=== PATIENT | female | born 1985 | race Caucasian/White ===

== ENCOUNTER 2016-11-21 20:29 | Emergency (ER) | payer OTHER ==
[2016-11-21 20:38] VITALS: BP 120/75; TEMP 98.5; BMI 26.6
[2016-11-21 21:02] VITALS: PULSE 107
--- NOTE | 2016-11-21 21:03 | PDOC ---
History of Present Illness - General Chief Complaint: Respiratory Stated Complaint: COLD SYMPTOMS/24 WKS Time Seen by Provider: 11/21/16 20:41 History Source: Patient - History of Present Illness Timing/Duration: reports: yesterday Associated Symptoms: reports: cough, fever/chills, nasal congestion, nasal drainage. denies: earache Past History - Past Medical History Allergies/Adverse Reactions: Allergies Allergy/AdvReac Type Severity Reaction Status Date / Time No Known Allergies Allergy Verified 11/21/16 20:38 Home Medications: Ambulatory Orders NK [No Known Home Medication] 01/25/16 Other medical history: denies - Psycho/Social/Smoking Cessation Hx Suicidal Ideation: No Smoking History: Never smoked Substance Use Type: None Review of Systems - Review of Systems Constitutional: Yes: Fever HEENTM: No: Ear Pain, Throat Pain Respiratory: Yes: Cough. No: Shortness of Breath, Wheezing Cardiac (ROS): No: Chest Pain *Physical Exam - Vital Signs Last Vital Signs Temp Pulse Resp BP Pulse Ox 98.5 F 124 H 18 120/75 97 11/21/16 20:36 11/21/16 20:36 11/21/16 20:36 11/21/16 20:36 11/21/16 20:36 - Physical Exam General Appearance: Yes: Appropriately Dressed. No: Apparent Distress HEENT: positive: Normal ENT Inspection, Normal Voice. negative: Scleral Icterus (R), Scleral Icterus (L) Neck: positive: Supple Respiratory/Chest: positive: Lungs Clear, Normal Breath Sounds. negative: Respiratory Distress Cardiovascular: positive: S1, S2 Integumentary: positive: Dry, Warm Neurologic: positive: Fully Oriented, Alert, Normal Mood/Affect Medical Decision Making - Medical Decision Making 11/21/16 21:00 31 yo F, currently 6 months w/ no issues w/ so far, p/w productuve cough w/ nasal congestion, rhinorrhea and subj fever since yesterday. States she has had intermittent difficulty breathing as her advances but denies acute sob, chest tightness or palpitations. No abd pain, vag bleed or dysuria. Patient well-appearing but tachycardic to 124 in ED, that significantly improved without any intervention. Rest of exam unremarkable. Most likely viral URI, no e/o serious pathology at this time. DC with instructions to maintain adequate hydration and take Tylenol for any pain. Patient discuss further recs with her OB 11/21/16 21:15 *DC/Admit/Observation/Transfer Diagnosis at time of Disposition: URI (upper respiratory infection) Qualifiers: URI type: unspecified viral URI Qualified Code(s): J06.9 - Acute upper respiratory infection, unspecified - Referrals Referrals: Demarcus Martinez [Primary Care Provider] - - Patient Instructions Printed Discharge Instructions: DI for Viral Upper Respiratory Infection -- Adult Additional Instructions: Please follow-up with your [employer]ICATION regarding recommendations
== END 2016-11-21 21:20 | disposition home or self-care (01) ==
LOC: JERFT 20:29
DX: O26.892 Other specified pregnancy related conditions, second trimester (principal); J06.9 Acute upper respiratory infection, unspecified; Z3A.24 24 weeks gestation of pregnancy
CPT/HCPCS: 99281-25

== ENCOUNTER 2017-02-07 19:11 | Inpatient (IN) | payer OTHER ==
[2017-02-07 20:41] VITALS: BMI 27.8
[2017-02-07 21:23] LABS: BASOPHIL 0.2 % (0-2.0); EOSINOPHIL 2.1 % (0-4.5); MCH 28.2 pg (25.7-33.7); MCHC 32.8 g/dl (32.0-36.0); MEAN PLT VOLUME 8.6 fl (7.5-11.1); NEUTROPHILS 70.9 % (42.8-82.8); PLATELET COUNT 286 K/MM3 (134-434); RDW 14.5 % (11.6-15.6); WHITE BLOOD COUNT 11.6 K/mm3 (4.0-10.0)
[2017-02-07 21:32] LABS: ANION GAP 14 (8-16); CALCIUM 8.7 mg/dL (8.5-10.1); CO2 19 mmol/L (21-32); CREATININE 0.6 mg/dL (0.55-1.02); GLUCOSE,RANDOM 109 mg/dL (74-106)
[2017-02-07 21:40] LABS: INR 0.95 (0.82-1.09); PROTHROMBIN TIME (PATIENT) 10.4 SEC (9.98-11.88)
[2017-02-07 21:42] LABS: ACTIVATED PTT 28.5 SECONDS (26.9-34.4)
[2017-02-07] MEDS ORDERED: ELECTROLYTE-148 SOLN 500 ML IV ONE (21:51)
[2017-02-07] MEDS ORDERED: CITRIC ACID/SODIUM CITRATE 30 ML UNIT-DOSE CUP PO ONE (21:51)
--- NOTE | 2017-02-07 21:58 | HP ---
Past Medical History - Admission Chief Complaint: Premature Rupture of membrane History of Present Illness: 32 yo @ 35.6 weeks gestation, EDC 03/09/17, presents c/o rupture of membrane. Patient had a sonogram showing evidence of breech presentation. She has personal h/o labor and has been on Progesterone throughout the . History Source: Patient Limitations to Obtaining History: No Limitations - Past Medical History ...: 5 ...Para: 1 ...Term: 0 ...: 1 ...Spon : 0 ...Induced : 3 ...Multiple Gestation: 0 ... Weeks Gestation by Dates: 35.6 ...EDC by Dates: 03/09/17 ...EDC by Sono: 03/09/17 - Past Surgical History Past Surgical History: Yes: None Hx Myomectomy: No Hx Transabdominal Cerclage: No - Smoking History Smoking history: Never smoked Have you smoked in the past 12 months: No - Alcohol/Substance Use Hx Alcohol Use: No History of Substance Use: reports: None - Social History Usual Living Arrangement: Yes: With Spouse History of Recent Travel: No Home Medications - Allergies Allergies/Adverse Reactions: Allergies Allergy/AdvReac Type Severity Reaction Status Date / Time No Known Allergies Allergy Verified 02/07/17 20:16 - Home Medications Home Medications: Ambulatory Orders Iron 1 tab PO DAILY 02/01/17 Vitamins (Sjr) - 1 tab PO DAILY 02/01/17 Family Disease History - Family Disease History Family History: Unremarkable Review of Systems - Review of Systems Constitutional: reports: No Symptoms Eyes: reports: No Symptoms HENT: reports: No Symptoms Neck: reports: No Symptoms Cardiovascular: reports: No Symptoms Respiratory: reports: No Symptoms Gastrointestinal: reports: No Symptoms Genitourinary: reports: Other (Rupture of membrane) Breasts: reports: No Symptoms Reported Musculoskeletal: reports: No Symptoms Integumentary: reports: No Symptoms Neurological: reports: No Symptoms Endocrine: reports: No Symptoms Hematology/Lymphatic: reports: No Symptoms Psychiatric: reports: No Symptoms Pain Intensity: 0 Physical Exam - Maternity Vital Signs: Vital Signs Temperature 99.1 F 02/07/17 20:24 Pulse Rate 100 H 02/07/17 20:24 Respiratory Rate 18 02/07/17 20:24 Blood Pressure 120/71 02/07/17 20:24 O2 Sat by Pulse Oximetry (%) Constitutional: Yes: Well Nourished Eyes: Yes: Conjunctiva Clear HENT: Yes: Atraumatic Neck: Yes: Supple, Trachea Midline Cardiovascular: Yes: Regular Rate and Rhythm Lungs: Clear to auscultation - Abdominal Exam/OB Number of Fetuses: Single Presentation: Vertex Contractions: Yes Regularity: Irregular Intensity: Unaware - Vaginal Exam/OB Vaginal Bleediing: No Amniotic Membrane Status: Ruptured Amniotic Fluid: Yes: Clear Presentation: Ananth Breech - Physical Exam ...Motor Strength: WNL Psychiatric: Yes: Alert, Oriented - Labs Lab Results: CBC, BMP 02/07/17 20:10 02/07/17 20:10 Problem List - Problems (1) premature rupture of membranes (PPROM) with unknown onset of labor Code(s): O42.919 - PRETRM XANDER ROM, UNSP TIME BETW RUPT AND ONST LABR, UNSP TRI Assessment/Plan Premature rupture of membrane Personal h/o Breech presentation Pre op for Consent signed Prep and shave Anesthesia to see patient
--- NOTE | 2017-02-07 22:04 | OP ---
Operative Note - Note: Operative Date: 02/07/17 Pre-Operative Diagnosis: PPROM / Breech Operation: Primary Low Transverse Findings: Baby girl in Ananth breech presentation Post-Operative Diagnosis: Same as Pre-op Surgeon: Vesna Yin [employer] Remover: Vi King Anesthesia: Spinal Specimens Removed: Placenta Estimated Blood Loss (mls): 500
[2017-02-07] MEDS ORDERED: METHYLERGONOVINE MALEATE 0.2 MG/1 ML AMP IM PRN (23:21)
[2017-02-07] MEDS ORDERED: D5W-LR W/ 20 UNITS OXYTOCIN 1,000 ML IV SCH (23:30)
[2017-02-08] MEDS ORDERED: ONDANSETRON 4 MG/2 ML VIAL IVPB PRN (00:02)
[2017-02-08 08:39] LABS: BASOPHIL 0.2 % (0-2.0); EOSINOPHIL 1.1 % (0-4.5); MCH 28.8 pg (25.7-33.7); MCHC 33.4 g/dl (32.0-36.0); MEAN CELL VOLUME 86.3 fl (80-96); MEAN PLT VOLUME 8.3 fl (7.5-11.1); PLATELET COUNT 222 K/MM3 (134-434); RDW 14.5 % (11.6-15.6); WHITE BLOOD COUNT 13.5 K/mm3 (4.0-10.0)
[2017-02-08] MEDS ORDERED: ACETAMINOPHEN 325 MG TABLET (FP) ONE ×2 (09:10→14:23)
[2017-02-08] MEDS: SIMETHICONE 80 MG TAB.CHEW (FP) PO PRN ×3 (09:15→18:43)
[2017-02-08] MEDS: IBUPROFEN 600 MG TABLET (FP) PO PRN ×3 (09:16→18:44)
[2017-02-08] MEDS: FERROUS SO4 325 MG TABLET (FP) PO SCH ×2 (09:27→22:48)
[2017-02-08] MEDS: PRENATAL VITAMINS W/ FOLIC ACID TABLET (FP) PO SCH (09:27)
--- NOTE | 2017-02-08 12:00 | PN ---
Progress Note (short form) - Note Progress Note: Anesthesia postop note, POD#1 S/P . Pat seen and examined. VSS. Senory and motor intact. No apparent post anesthesia complications. Signed off.
--- NOTE | 2017-02-08 13:33 | PN ---
Post Progress Note - Subjective Subjective: 32 yo status post primary due to Breech presentation, seen and evaluated. Doing well. Post Day: 1 Type of Delivery: Primary C/S Vital Signs: Vital Signs Temperature 98.1 F 02/08/17 09:46 Pulse Rate 87 02/08/17 09:46 Respiratory Rate 20 02/08/17 10:00 Blood Pressure 108/54 02/08/17 09:46 O2 Sat by Pulse Oximetry (%) 100 02/08/17 00:30 Breast Exam: Yes: Soft Uterus: Yes: Fundus Firm Incision: Yes: Dressing dry and intact Abdomen/GI: Yes: Abdomen soft, Tolerating PO Lochia: Yes: Rubra Lochia, amount: Small Extremities: Yes: Calves non-tender Perineum: Yes: Intact Activity: Other (She's lying in bed) - Labs Labs: CBC WBC 13.5 K/mm3 (4.0-10.0) H 02/08/17 07:20 RBC 3.25 M/mm3 (3.60-5.2) L 02/08/17 07:20 Hgb 9.4 GM/dL (10.7-15.3) L 02/08/17 07:20 Hct 28.1 % (32.4-45.2) L 02/08/17 07:20 MCV 86.3 fl (80-96) 02/08/17 07:20 MCHC 33.4 g/dl (32.0-36.0) 02/08/17 07:20 RDW 14.5 % (11.6-15.6) 02/08/17 07:20 Plt Count 222 K/MM3 (134-434) D 02/08/17 07:20 MPV 8.3 fl (7.5-11.1) 02/08/17 07:20 Neutrophils % 80.0 % (42.8-82.8) 02/08/17 07:20 Lymphocytes % 13.7 % (8-40) D 02/08/17 07:20 Monocytes % 5.0 % (3.8-10.2) 02/08/17 07:20 Eosinophils % 1.1 % (0-4.5) 02/08/17 07:20 Basophils % 0.2 % (0-2.0) 02/08/17 07:20 Problem List - Problems (1) premature rupture of membranes (PPROM) with unknown onset of labor Code(s): O42.919 - PRETRM XANDER ROM, UNSP TIME BETW RUPT AND ONST LABR, UNSP TRI (2) Status post primary low transverse section Code(s): Z98.891 - HISTORY OF UTERINE SCAR FROM PREVIOUS SURGERY Assessment/Plan Status post primary StableAmbulation Analgesia as needed Continue routine Post op care
[2017-02-08] MEDS: ACETAMINOPHEN 325 MG TABLET (FP) PO PRN (18:43)
[2017-02-08] MEDS: oxyCODONE HCL 5 MG TABLET PO PRN (21:57)
[2017-02-08] MEDS ORDERED: BISACODYL 10 MG SUPP.RECT RC PRN (23:22)
[2017-02-09] MEDS: SIMETHICONE 80 MG TAB.CHEW (FP) PO PRN ×3 (02:09→18:45)
[2017-02-09] MEDS: IBUPROFEN 600 MG TABLET (FP) PO PRN ×3 (02:09→18:45)
[2017-02-09] MEDS: oxyCODONE HCL 5 MG TABLET PO PRN ×3 (02:10→18:44)
--- NOTE | 2017-02-09 07:11 | PN ---
Progress Note (SOAP) - Subjective Chief Complaint: Pt dooing well - Current Medications Current Medications: Active Medications Acetaminophen (Tylenol -) 650 mg PO Q4H PRN PRN Reason: PAIN Last Admin: 02/08/17 18:43 Dose: 650 mg Bisacodyl (Dulcolax Suppository -) 10 mg RC PRN PRN PRN Reason: CONSTIPATION Diphenhydramine HCl (Benadryl Injection -) 25 mg IVPUSH Q4H PRN PRN Reason: Pruritis Diphtheria/Tetanus/Acell Pertussis (Boostrix -) 0.5 ml IM .ONCE ONE Stop: 02/09/17 10:01 Ferrous Sulfate (Feosol -) 325 mg PO BID [facility] Last Admin: 02/08/17 22:48 Dose: Not Given Dextrose/Lactated Ringer's (Pitocin 20 Units In D5-Lr -) 1,000 mls @ 125 mls/ hr IV ASDIR [facility] Last Admin: 02/08/17 12:31 Dose: 125 mls/hr Ibuprofen (Motrin -) 600 mg PO Q4H PRN PRN Reason: PAIN Last Admin: 02/09/17 02:09 Dose: 600 mg Methylergonovine Maleate (Methergine Injection -) 0.2 mg IM Q4H PRN PRN Reason: Excessive Bleeding (L&D) Oxycodone HCl (Roxicodone -) 5 mg PO Q4H PRN PRN Reason: PAIN LEVEL 1-5 Last Admin: 02/09/17 02:10 Dose: 5 mg Multivit/Folic Acid/Iron ( Vitamins (Sjr) -) 1 tab PO DAILY [facility] Last Admin: 02/08/17 09:27 Dose: Not Given Simethicone (Mylicon -) 80 mg PO Q4H PRN PRN Reason: GAS Last Admin: 02/09/17 02:09 Dose: 80 mg - Objective Vital Signs: Vital Signs Temperature 98.0 F 02/08/17 22:00 Pulse Rate 76 02/08/17 22:00 Respiratory Rate 20 02/08/17 22:37 Blood Pressure 108/64 02/08/17 22:00 O2 Sat by Pulse Oximetry (%) 100 02/08/17 00:30 Constitutional: Yes: Well Nourished, No Distress Gastrointestinal: Yes: WNL ....Post : Yes: Uterus firm, Uterus non-tender Breast(s): Yes: WNL Musculoskeletal: Yes: WNL Extremities: Yes: WNL Labs Lab Results: CBC, BMP 02/08/17 07:20 02/07/17 20:10 Assessment/Plan SP CS POD2 Plan DC home in am if stable
[2017-02-09] MEDS: PRENATAL VITAMINS W/ FOLIC ACID TABLET (FP) PO SCH (09:52)
[2017-02-09] MEDS: FERROUS SO4 325 MG TABLET (FP) PO SCH ×2 (09:52→23:16)
[2017-02-09] MEDS ORDERED: DIPHTH,PERTUSS(ACELL),TET 0.5 ML DISP.SYRIN IM ONE (10:00)
[2017-02-10] MEDS: SIMETHICONE 80 MG TAB.CHEW (FP) PO PRN ×4 (02:38→21:12)
[2017-02-10] MEDS: oxyCODONE HCL 5 MG TABLET PO PRN ×4 (02:38→21:12)
[2017-02-10] MEDS: ACETAMINOPHEN 325 MG TABLET (FP) PO PRN ×4 (02:39→21:13)
[2017-02-10] MEDS: IBUPROFEN 600 MG TABLET (FP) PO PRN ×4 (02:39→21:13)
[2017-02-10 07:29] LABS: BASOPHIL 0.2 % (0-2.0); EOSINOPHIL 1.7 % (0-4.5); MCH 28.9 pg (25.7-33.7); MCHC 33.4 g/dl (32.0-36.0); MEAN CELL VOLUME 86.5 fl (80-96); MEAN PLT VOLUME 8.2 fl (7.5-11.1); NEUTROPHILS 69.8 % (42.8-82.8); PLATELET COUNT 238 K/MM3 (134-434); RDW 14.6 % (11.6-15.6); WHITE BLOOD COUNT 9.7 K/mm3 (4.0-10.0)
[2017-02-10] MEDS: PRENATAL VITAMINS W/ FOLIC ACID TABLET (FP) PO SCH (09:08)
[2017-02-10] MEDS: FERROUS SO4 325 MG TABLET (FP) PO SCH ×2 (09:08→21:12)
--- NOTE | 2017-02-10 09:15 | PN ---
Progress Note (SOAP) - Subjective Chief Complaint: Pt doing well - Current Medications Current Medications: Active Medications Acetaminophen (Tylenol -) 650 mg PO Q4H PRN PRN Reason: PAIN Last Admin: 02/10/17 09:09 Dose: 650 mg Bisacodyl (Dulcolax Suppository -) 10 mg RC PRN PRN PRN Reason: CONSTIPATION Diphenhydramine HCl (Benadryl Injection -) 25 mg IVPUSH Q4H PRN PRN Reason: Pruritis Ferrous Sulfate (Feosol -) 325 mg PO BID [facility] Last Admin: 02/10/17 09:08 Dose: 325 mg Ibuprofen (Motrin -) 600 mg PO Q4H PRN PRN Reason: PAIN Last Admin: 02/10/17 09:09 Dose: 600 mg Methylergonovine Maleate (Methergine Injection -) 0.2 mg IM Q4H PRN PRN Reason: Excessive Bleeding (L&D) Oxycodone HCl (Roxicodone -) 5 mg PO Q4H PRN PRN Reason: PAIN LEVEL 1-5 Last Admin: 02/10/17 09:08 Dose: 5 mg Multivit/Folic Acid/Iron ( Vitamins (Sjr) -) 1 tab PO DAILY [facility] Last Admin: 02/10/17 09:08 Dose: 1 tab Simethicone (Mylicon -) 80 mg PO Q4H PRN PRN Reason: GAS Last Admin: 02/10/17 09:08 Dose: 80 mg - Objective Vital Signs: Vital Signs Temperature 98.2 F 02/10/17 07:39 Pulse Rate 81 02/10/17 07:39 Respiratory Rate 18 02/10/17 07:39 Blood Pressure 110/57 02/10/17 07:39 O2 Sat by Pulse Oximetry (%) 100 02/08/17 00:30 Constitutional: Yes: Well Nourished, No Distress Neck: Yes: WNL Cardiovascular: Yes: WNL ....Post : Yes: Uterus firm, Uterus non-tender Wound/Incision: Yes: Open to air Neurological: Yes: WNL, Alert, Oriented Labs Lab Results: CBC, BMP 02/10/17 06:00 02/07/17 20:10 Assessment/Plan SP CS POD3 Plan DC home in am if stable
[2017-02-11] MEDS: SIMETHICONE 80 MG TAB.CHEW (FP) PO PRN (07:01)
[2017-02-11] MEDS: ACETAMINOPHEN 325 MG TABLET (FP) PO PRN (07:02)
[2017-02-11] MEDS: IBUPROFEN 600 MG TABLET (FP) PO PRN (07:03)
[2017-02-11 08:29] VITALS: BP 110/70; PULSE 82; TEMP 98.1
[2017-02-11] MEDS: FERROUS SO4 325 MG TABLET (FP) PO SCH (09:24)
[2017-02-11] MEDS: PRENATAL VITAMINS W/ FOLIC ACID TABLET (FP) PO SCH (09:24)
--- NOTE | 2017-02-14 12:58 | PATH ---
Surgical Pathology Report Patient Name: JOSE WEINBERG Med. Rec. #: [id number] /Age/Gender: 1985 (Age: 32) / F Account: [id number] Location: [facility] OBS/FERRY CAPTAIN Taken: 02/07/2017 Received: 02/08/2017 Reported: 02/14/2017 Physicians: Jitendra Thorne Specimen(s) Received PLACENTA Clinical History at 35 weeks and 6 days, breech presentation in labor C/section Final Diagnosis PLACENTA, DELIVERY: FOCALLY DISRUPTED THIRD TRIMESTER PLACENTA WITH MILD PREVILLOUS, PERIVILLOUS, AND PRECHORIONIC FIBRIN DEPOSITION, THREE VESSEL UMBILICAL CORD, AND PLACENTAL MEMBRANES WITH FOCAL AMNION HYPERPLASIA. Electronically Signed Jorge Abraham M.D. Gross Description The specimen is received fresh, labeled "placenta" and is a 428 gram, 25.0 x 16.5 x 2.3 cm placenta with attached membranes and umbilical cord. The attached membranes are hicks, translucent with focal opacities and insert marginally. The umbilical cord measures 30 cm. in length and averages 1.3 cm. in diameter. The cord inserts eccentrically, 4 cm. to the nearest margin. No true knots or strictures are identified. Cut surface of the umbilical cord reveals 3 vessels. The surface is caballero-blue with fibrin deposition and appropriate caliber vessels. The maternal surface is red-brown with focal defects. Sectioning reveals red-brown, spongy parenchyma. No focal lesions are identified. [employer] sections are submitted in three cassettes as follows: 1- membrane rolls and umbilical cord; 2-3- full thickness sections of placenta. 02/13/201702/13/2017
== END 2017-02-11 10:42 | disposition home or self-care (01) | DRG 540 ==
LOC: JDEL 19:11 → JLDR 19:12 → J3W 02-08 00:55
PROVIDERS: ADMIT Obstetrics & Gynecology; ATTEND Obstetrics & Gynecology
PROC: 10D00Z1 Extraction of Products of Conception, Low, Open Approach (ICD-10-PCS; principal; 2017-02-07)
DX: O32.1XX0 Maternal care for breech presentation, not applicable or unspecified (principal); O42.913 Preterm premature rupture of membranes, unspecified as to length of time between rupture and onset of labor, third trimester; O60.14X0 Preterm labor third trimester with preterm delivery third trimester, not applicable or unspecified; Z3A.35 35 weeks gestation of pregnancy; Z37.0 Single live birth
CPT/HCPCS: 36415; 76801-TC; 80048; 85025; 85610; 85730; 86593; 86850; 86900; 86901; 88307-TC; 90715

== ENCOUNTER 2019-10-15 06:00 | Day surgery (SDC) | payer OTHER ==
[2019-10-14 08:54] VITALS: BMI 26.2
[2019-10-15] MEDS ORDERED: PROPOFOL 20 ML ONE ×2 (07:15)
[2019-10-15] MEDS ORDERED: SUCCINYLCHOLINE CHLORIDE 200 MG/10 ML SYRINGE ONE (07:15)
[2019-10-15] MEDS ORDERED: MIDAZOLAM HCL 2 MG/2 ML SINGLE DOSE VIAL ONE (07:15)
--- NOTE | 2019-10-15 07:32 | HP ---
Admitting History and Physical - Admission Chief Complaint: Multiparity / Desires permanent sterilization History of Present Illness: 34 yo Para 2, desires permanent sterilization. She's pre op for Laparoscopic tubal ligation. History Source: Patient Limitations to Obtaining History: No Limitations - Past Medical History ...LMP Comment: august-on control "shots" ...: No ...Para: 2 - Past Surgical History Past Surgical History: Yes: - Smoking History Smoking history: Never smoked Have you smoked in the past 12 months: No - Alcohol/Substance Use Hx Alcohol Use: Yes (socially) History of Substance Use: reports: None - Social History Usual Living Arrangement: Yes: With Spouse History of Recent Travel: No Home Medications - Allergies Allergies/Adverse Reactions: Allergies Allergy/AdvReac Type Severity Reaction Status Date / Time No Known Allergies Allergy Verified 10/14/19 08:54 - Home Medications Home Medications: Ambulatory Orders NK [No Known Home Medication] 10/14/19 Family Medical History Family History: Unremarkable Review of Systems - Review of Systems Constitutional: reports: No Symptoms Eyes: reports: No Symptoms HENT: reports: No Symptoms Neck: reports: No Symptoms Cardiovascular: reports: No Symptoms Respiratory: reports: No Symptoms Gastrointestinal: reports: No Symptoms Genitourinary: reports: No Symptoms Breasts: reports: No Symptoms Reported Musculoskeletal: reports: No Symptoms Integumentary: reports: No Symptoms Neurological: reports: No Symptoms Psychiatric: reports: No Symptoms Pain Intensity: 0 Physical Examination Constitutional: Yes: No Distress Eyes: Yes: Conjunctiva Clear HENT: Yes: Atraumatic Neck: Yes: Supple Cardiovascular: Yes: Regular Rate and Rhythm Respiratory: Yes: Regular Gastrointestinal: Yes: Normal Bowel Sounds Musculoskeletal: Yes: WNL Neurological: Yes: Alert, Oriented ...Motor Strength: WNL Psychiatric: Yes: Alert, Oriented Problem List - Problems (1) Multiparity Problems reviewed: Yes Code(s): Z64.1 - PROBLEMS RELATED TO MULTIPARITY Assessment/Plan Multiparity Pre op for Lap BTL Consent signed Anesthesia to see patient
[2019-10-15] MEDS ORDERED: ROCURONIUM BROMIDE 50 MG/5 ML SYRINGE ONE (07:41)
[2019-10-15] MEDS ORDERED: ceFAZolin SODIUM 1 GM VIAL IVPB ONE (07:42)
[2019-10-15] MEDS ORDERED: DEXAMETHASONE SOD PHOSPHATE 4 MG/1 ML VIAL ONE ×2 (07:49→08:21)
[2019-10-15] MEDS ORDERED: NEOSTIGMINE METHYLSULFATE 0.5 MG/ML - 10 ML MDV ONE (08:20)
[2019-10-15] MEDS ORDERED: KETOROLAC TROMETHAMINE 30 MG/1 ML VIAL ONE (08:21)
[2019-10-15] MEDS ORDERED: GLYCOPYRROLATE 0.2 MG/1 ML VIAL ONE (08:21)
--- NOTE | 2019-10-15 08:41 | OP ---
Operative Note - Note: Operative Date: 10/15/19 Pre-Operative Diagnosis: Multiparity / Desires permanent sterilization Operation: Laparoscopic bilateral tubal ligation Post-Operative Diagnosis: Same as Pre-op Surgeon: Vesna Yin Anesthesia: General Specimens Removed: None Estimated Blood Loss (mls): 5
[2019-10-15] MEDS ORDERED: oxyCODONE HCL 5 MG TABLET PO PRN (09:23)
[2019-10-15] MEDS ORDERED: ONDANSETRON 4 MG/2 ML VIAL IVPUSH PRN (09:23)
[2019-10-15] MEDS ORDERED: LACTATED RINGERS SOLUTION 1,000 ML IV SCH (09:30)
[2019-10-15 11:54] VITALS: BP 103/71; PULSE 68; TEMP 98.3
--- NOTE | 2019-10-15 20:06 | OP ---
DATE OF OPERATION: 10/15/2019 PREOPERATIVE DIAGNOSIS: Multiparity, desired permanent sterilization. POSTOPERATIVE DIAGNOSIS: Multiparity, desired permanent sterilization. PROCEDURE: Laparoscopic bilateral tubal ligation. SURGEON: Vesna Yin MD ANESTHESIA: General. COMPLICATIONS: None. ESTIMATED BLOOD LOSS: Less than 5 mL. PROCEDURE: The patient was taken to the operating room, where general anesthesia was obtained without difficulty. The patient was then examined under anesthesia. She was then prepped and draped in proper sterile fashion. A weighted speculum was placed in the vagina. The anterior lip of the cervix was grasped with a single-tooth tenaculum and a HUMI uterine manipulator was then advanced into the uterus as a means to manipulate the uterus. The speculum was removed from the vagina. Attention was then turned to the patient's abdomen, where a 5-mm skin incision was made in the umbilical fold. The Veress needle was carefully introduced into the peritoneal cavity while tenting the abdominal wall. Intraperitoneal placement was confirmed by use of a water-filled syringe and drop in intraabdominal pressure with insufflation of CO2 gas. The trocar and sleeve were then advanced without difficulty into the abdomen, where intraabdominal placement was confirmed by the laparoscope. Pneumoperitoneum was obtained with 3 L of CO2 gas, and the 5-mm trocar and sleeve were then advanced without difficulty into the abdomen, where intraabdominal placement was confirmed by the laparoscope. A 2nd skin incision was made 2 cm above the pubic symphysis in the midline. A 2nd trocar and sleeve were then advanced under direct visualization. A survey of the patient's pelvis and abdomen revealed a moderately enlarged uterus, but there was no adhesion noted. Then the Kleppinger was then advanced into the 2nd trocar under direct visualization, and the right tube was then grasped with the Kleppinger 3 cm away from the cornua and the tube was cauterized on 3 consecutive areas until complete blanching of the tube was noted. The same procedure was performed on the left side. Then the instruments were removed. The patient was taken out of lithotomy position. She was taken to PACU in stable condition. Jitendra [id number]
== END 2019-10-15 12:15 | disposition home or self-care (01) ==
LOC: JASU-SURG 06:00
PROVIDERS: ATTEND Obstetrics & Gynecology
PROC: 0U574ZZ Destruction of Bilateral Fallopian Tubes, Percutaneous Endoscopic Approach (ICD-10-PCS; principal; 2019-10-15 07:30)
DX: Z30.2 Encounter for sterilization (principal)
CPT/HCPCS: 81025; 94760

== ENCOUNTER 2022-09-12 08:56 | Emergency (ER) | payer OTHER ==
[2022-09-12 09:51] VITALS: BP 134/83; PULSE 78; RESP 18; TEMP 98.1; BMI 25.7
[2022-09-12] MEDS ORDERED: KETOROLAC TROMETHAMINE 30 MG/1 ML VIAL IM ONE (10:41)
[2022-09-12] MEDS ORDERED: LIDOCAINE 5% TOPICAL PATCH TP ONE (10:41)
[2022-09-12] MEDS ORDERED: ACETAMINOPHEN 500 MG TABLET (FP) PO ONE (10:41)
[2022-09-12] MEDS ORDERED: CYCLOBENZAPRINE HCL 10 MG TABLET (FP) PO ONE (10:41)
[2022-09-12] MEDS ORDERED: KETOROLAC TROMETHAMINE 30 MG/1 ML VIAL ONE (10:50)
[2022-09-12] MEDS ORDERED: LIDOCAINE 5% TOPICAL PATCH ONE (10:50)
[2022-09-12] MEDS ORDERED: ACETAMINOPHEN 500 MG TABLET (FP) ONE (10:50)
[2022-09-12] MEDS ORDERED: CYCLOBENZAPRINE HCL 10 MG TABLET (FP) ONE (10:50)
[2022-09-12] MEDS ORDERED: LIDOCAINE PATCH REMOVAL MC ONE (22:00)
== END 2022-09-12 12:27 | disposition home or self-care (01) ==
LOC: JER 08:56 → JERFT 08:56
PROC: 3E0233Z Introduction of Anti-inflammatory into Muscle, Percutaneous Approach (ICD-10-PCS; principal; 2022-09-12)
DX: S00.81XA Abrasion of other part of head, initial encounter (principal); M25.562 Pain in left knee; W00.0XXA Fall on same level due to ice and snow, initial encounter
CPT/HCPCS: 72100-TC-FY; 73562-TC-LT-FY; 99284-25

== ENCOUNTER 2024-07-06 04:19 | Day surgery (SDC) | payer OTHER ==
[2024-07-03 16:18] VITALS: BMI 25.0
[2024-07-06 10:07] VITALS: RESP 18
[2024-07-06] MEDS ORDERED: PROPOFOL 20 ML ONE (11:23)
[2024-07-06] MEDS ORDERED: MIDAZOLAM HCL 2 MG/2 ML SINGLE DOSE VIAL ONE (11:23)
[2024-07-06 16:09] VITALS: BP 121/77; PULSE 82; TEMP 98
== END 2024-07-06 12:50 | disposition home or self-care (01) ==
LOC: JASU-SURG 04:19
PROVIDERS: ATTEND Urology
PROC: 0TF4XZZ Fragmentation in Left Kidney Pelvis, External Approach (ICD-10-PCS; principal; 2024-07-06 11:30)
DX: N20.0 Calculus of kidney (principal)
CPT/HCPCS: 81025